=== PATIENT | female | born 1985 | race Caucasian/White ===

== ENCOUNTER 2017-07-26 08:46 | Inpatient (IN) | payer OTHER ==
[2017-07-26 10:24] VITALS: BMI 42.4
--- NOTE | 2017-07-26 12:58 | HP ---
CIWA Score - CIWA Score Nausea/Vomitin-No Nausea/No Vomiting Muscle Tremors: 4-Moderate,w/Arms Extend Anxiety: 3 Agitation: 4-Moderately Restless Paroxysmal Sweats: 3 Orientation: 0-Oriented Tacttile Disturbances: 0-None Auditory Disturbances: 0-None Visual Disturbances: 0-None Headache: 1-Very Mild CIWA-Ar Total Score: 15 Admission ROS BHS - HPI Chief Complaint: I am here to detox. Allergies/Adverse Reactions: Allergies Allergy/AdvReac Type Severity Reaction Status Date / Time Penicillins Allergy Severe Rash Verified 07/26/17 10:29 History of Present Illness: pt is a 31yr old female with a history of alcohol dependence seeking detox for treatment. Exam Limitations: No Limitations - Ebola screening Have you traveled outside of the country in the last 21 days: No Have you had contact with anyone from an Ebola affected area: No Have you been sick,other than usual withdrawal symptoms: No Do you have a fever: No - Review of Systems Constitutional: Chills, Diaphoresis, Loss of Appetite, Night Sweats, Changes in sleep EENT: reports: No Symptoms Reported Respiratory: reports: No Symptoms reported Cardiac: reports: Syncope GI: reports: Nausea, Poor Fluid Intake, Vomiting, Indigestion : reports: No Symptoms Reported Musculoskeletal: reports: Back Pain, Muscle Pain Integumentary: reports: Flushing, Pruritus (abdomen and chest area), Rash ( abdomen and chest), Sweating Neuro: reports: Headache, Seizure (last seizure 2013), Tingling, Tremors Endocrine: reports: Excessive Sweating, Flushing Hematology: reports: No Symptoms Reported Psychiatric: reports: Judgement Intact, Mood/Affect Appropiate, Orientated x3, Agitated, Anxious Other Systems: Reviewed and Negative Patient History - Patient Medical History Hx Anemia: No Hx Asthma: No Hx Chronic Obstructive Pulmonary Disease (COPD): No Hx Cancer: No Hx Cardiac Disorders: No Hx Congestive Heart Failure: No Hx Hypertension: No Hx Hypercholesterolemia: Yes Hx Pacemaker: No HX Cerebrovascular Accident: No Hx Seizures: Yes (etoh related in 2013) Hx Dementia: No Hx Diabetes: No Hx Gastrointestinal Disorders: No Hx Liver Disease: No Hx Genitourinary Disorders: No Hx Sexually Transmitted Disorders: No Hx Renal Disease (ESRD): No Hx Thyroid Disease: No Hx Human Immunodeficiency Virus (HIV): No (negative) Hx Hepatitis C: No (negative) Hx Depression: Yes Hx Suicide Attempt: Yes ( tried to cut wrist age 14. denies any S/H ideation today) Hx Bipolar Disorder: No Hx Schizophrenia: No - Patient Surgical History Past Surgical History: Yes Hx Section: Yes (2004) - PPD History Previous Implant?: Yes Documented Results: Negative w/o proof Implanted On Prior [facility] Admission?: No PPD to be Administered?: Yes - Reproductive History Last Menstrual Period: 07/12/17 Patient : No - Smoking Cessation Smoking history: Current every day smoker Have you smoked in the past 12 months: Yes Aproximately how many cigarettes per day: 20 Hx Chewing Tobacco Use: No Initiated information on smoking cessation: Yes 'Breaking Loose' booklet given: 07/26/17 - Substance & Tx. History Hx Alcohol Use: Yes Hx Substance Use: Yes Substance Use Type: Alcohol, Cocaine, Marijuana Hx Substance Use Treatment: Yes (last detox [facility] in [place] 11/2015 ) - Substances Abused Alcohol Route: Oral Frequency: Daily Amount used: 12PK BEER/ a fifth of vodka Age of first use: 11 Date of Last Use: 07/26/17 Cocaine Route: Inhalation Frequency: 1-3 times last 30 days Amount used: 1 GRAM Age of first use: 13 Date of Last Use: 07/24/17 Marijuana/Hashish Route: Smoking Frequency: Daily Amount used: 2 JOINTS Age of first use: 13 Date of Last Use: 07/25/17 Family Disease History - Family Disease History Family Disease History: Heart Disease: Mother, CA: Grandparent (breast CA), Brother (testicular CA) Admission Physical Exam S - Vital Signs Vital Signs: Vital Signs - 24 hr 07/26/17 10:22 Temperature 96.4 F L Pulse Rate 84 Respiratory 20 Rate Blood Pressure 151/89 - Physical General Appearance: Yes: Appropriately Dressed, Moderate Distress, Obese, Tremorous, Irritable, Sweating, Anxious HEENTM: Yes: Normal Voice Respiratory: Yes: Lungs Clear, Normal Breath Sounds, No Respiratory Distress Neck: Yes: No masses,lesions,Nodules Breast: Yes: Within Normal Limits Cardiology: Yes: Regular Rhythm, Regular Rate, S1, S2 Abdominal: Yes: Normal Bowel Sounds, Non Tender, Soft Genitourinary: Yes: Within Normal Limits Back: Yes: Normal Inspection Musculoskeletal: Yes: full range of Motion, Gait Steady Extremities: Yes: Normal Capillary Refill, Normal Inspection, Tremors Neurological: Yes: Fully Oriented, Alert, Normal Response Integumentary: Yes: Normal Color, Diaphoresis Lymphatic: Yes: Within Normal Limits - Diagnostic (1) Alcohol dependence with uncomplicated withdrawal Current Visit: Yes Status: Chronic (2) Rash/skin eruption Current Visit: Yes Status: Acute Comment: on metrol pk and docycline antibiotic (3) Hypercholesteremia Current Visit: Yes Status: Chronic Cleared for Admission [facility] - Detox or Rehab [facility] Level of Care: Medically Managed Detox Regimen/Protocol: Librium [facility] Breath Alcohol Content Breath Alcohol Content: 0.018 Urine Pregancy Test - Result Urine Test Results: Negative- NO Line Present Urine Drug Screen - Results Drug Screen Negative: No Urine Drug Screen Results: THC-Marijuana, AIMEE-Cocaine
[2017-07-26] MEDS ORDERED: MAGNESIUM HYDROX 2400MG/30ML ORAL SUSPENSION 30 ML CUP PO PRN (13:14)
[2017-07-26] MEDS ORDERED: MAGNESIUM CITRATE 300 ML BOTTLE PO PRN (13:14)
[2017-07-26] MEDS ORDERED: MENTHOL/PHENOL 1 EACH UD MM PRN (13:14)
[2017-07-26] MEDS ORDERED: LOPERAMIDE HCL 2 MG CAPSULE PO PRN (13:14)
[2017-07-26] MEDS ORDERED: chlordiazePOXIDE HCL 25 MG CAPSULE PO PRN (13:14)
[2017-07-26] MEDS ORDERED: MAG HYDROX/AL HYDROX/SIMETH 30 ML UNIT-DOSE CUP PO PRN (13:14)
[2017-07-26] MEDS ORDERED: P-EPHED 60MG/TRIPROLIDI 2.5MG TABLET PO PRN (13:14)
[2017-07-26] MEDS ORDERED: guaiFENesin/D-METHORPHAN HB 10 ML UNIT-DOSE CUPS PO PRN (13:14)
[2017-07-26] MEDS ORDERED: chlordiazePOXIDE HCL 25 MG CAPSULE PO ONE (14:00)
[2017-07-26] MEDS: chlordiazePOXIDE HCL 25 MG CAPSULE PO SCH ×2 (16:58→22:20)
[2017-07-26] MEDS: DOXYCYCLINE HYCLATE 100 MG TABLET PO SCH (17:01)
[2017-07-26] MEDS: hydrOXYzine PAMOATE 50 MG CAPSULE (FP) PO PRN (17:05)
[2017-07-26 17:24] LABS: MCH 27.8 pg (25.7-33.7); MCHC 32.1 g/dl (32.0-36.0); MEAN CELL VOLUME 86.6 fl (80-96); MEAN PLT VOLUME 10.2 fl (7.5-11.1); PLATELET COUNT 338 K/MM3 (134-434); RDW 15.5 % (11.6-15.6); WHITE BLOOD COUNT 16.1 K/mm3 (4.0-10.0)
[2017-07-26 17:31] LABS: URINE APPEARANCE SLCLOUDY; URINE BILIRUBIN NEGATIVE (NEGATIVE); URINE BLOOD NEGATIVE (NEGATIVE); URINE COLOR DKYELLOW; URINE GLUCOSE (UA) NEGATIVE (NEGATIVE); URINE KETONE TRACE (NEGATIVE); URINE LEUK ESTERASE NEGATIVE (NEGATIVE); URINE NITRITE NEGATIVE (NEGATIVE); URINE PROTEIN NEGATIVE (NEGATIVE); URINE UROBILINOGEN NEGATIVE mg/dL (0.2-1.0)
[2017-07-26 17:49] LABS: CALCIUM 9.5 mg/dL (8.5-10.1)
[2017-07-26 17:56] LABS: ALBUMIN 4.2 g/dl (3.4-5.0); ALK PHOS 83 U/L (45-117); ANION GAP 10 (8-16); BILIRUBIN,TOTAL 0.4 mg/dL (0.2-1.0); CO2 29 mmol/L (21-32); GLUCOSE,RANDOM 89 mg/dL (74-106); SGOT/AST 25 U/L (15-37); SGPT/ALT 37 U/L (12-78); TOT PROT 7.8 g/dl (6.4-8.2)
[2017-07-26] MEDS: THIAMINE HCL 100 MG TABLET (FP) PO SCH (22:20)
[2017-07-26] MEDS: diphenhydrAMINE HCL 50 MG CAPSULE PO PRN (22:20)
[2017-07-27] MEDS: chlordiazePOXIDE HCL 25 MG CAPSULE PO SCH ×4 (06:02→22:23)
[2017-07-27] MEDS ORDERED: methylPREDNISolone 4 MG TABLET PO SCH (10:00)
[2017-07-27] MEDS ORDERED: TRIMETHOBENZAMIDE HCL 200MG/2ML INJ IM ONE (10:15)
--- NOTE | 2017-07-27 10:24 | CONSULT ---
[facility] Psychiatric Consult - Data Date of interview: 07/27/17 Admission source: [facility] Identifying data: This is 31 years old female with psychiatric hospitalization history, intoxicated with: Opioids, Cocaine, Xanax and Nicotine Substance Abuse History: Smoking history: Current every day smoker. Have you smoked in the past 12 months: Yes. Aproximately how many cigarettes per day: 20. Hx Chewing Tobacco Use: No. Initiated information on smoking cessation: Yes. 'Breaking Loose' booklet given: 07/26/17. - Substance & Tx. History. Hx Alcohol Use: Yes. Hx Substance Use: Yes. Substance Use Type: Alcohol, Cocaine , Marijuana. Hx Substance Use Treatment: Yes (last detox [facility] in [place] 11/2015). - Substances Abused. Alcohol. Route: Oral. Frequency: Daily. Amount used: 12PK BEER/ a fifth of vodka. Age of first use: 11. Date of Last Use: 07/26/17. Cocaine. Route: Inhalation. Frequency: 1-3 times last 30 days. Amount used: 1 GRAM. Age of first use: 13. Date of Last Use: . Marijuana/Hashish. Route: Smoking. Frequency: Daily. Amount used : 2 JOINTS. Age of first use: 13. Date of Last Use: 07/25/17 Medical History: Hypercholesterolemia, Psychiatric History: Patient reports history of anxiety and depression history, most recent psychiatoirc admsision on 2015 at [facility], reports unclear suicidal history, no scars or stitches visible, reports last suicidal OG on 2015, no suicidal attempts since then, reports taking prior to admision: Gabapentin 800mg po tid. Topamax 50mg po bid. Zoloft 200mg poqd. Abilify 10mg poqd Physical/Sexual Abuse/Trauma History: Denies Additional Comment: Gabapentin 800mg po tid. Topamax 50mg po bid. Zoloft 200mg poqd. Abilify 10mg poqd Mental Status Exam - Mental Status Exam Alert and Oriented to: Person Cognitive Function: Fair Patient Appearance: Unkempt Mood: Anxious Affect: Constricted Patient Behavior: Cooperative Voice Loudness: Normal Thought Process: Goal Oriented Thought Disorder: Being Controlled Hallucinations: Denies Suicidal Ideation: Denies Homicidal Ideation: Denies Insight/Judgement: Fair Sleep: Difficulty falling asleep Appetite: Weight gain Muscle strength/Tone: Normal Gait/Station: Normal Additional Comments: Gabapentin 800mg po tid. Topamax 50mg po bid. Zoloft 200mg poqd. Abilify 10mg poqd Psychiatric Findings - Problem List ([place] 1, 2,3) (1) Alcohol dependence with uncomplicated withdrawal Current Visit: Yes Status: Chronic (2) Bipolar disorder Current Visit: Yes Status: Acute (3) Alcohol-induced anxiety disorder Current Visit: Yes Status: Acute (4) Bipolar I disorder, severe, current or most recent episode depressed, in full remission, with anxious distress Current Visit: Yes Status: Acute - Initial Treatment Plan Initial Treatment Plan: Gabapentin 800mg po tid. Topamax 50mg po bid. Zoloft 200mg poqd. Abilify 10mg poqd
[2017-07-27] MEDS: PRENATAL VITAMINS W/ FOLIC ACID TABLET (FP) PO SCH (10:49)
[2017-07-27] MEDS: SERTRALINE HCL 50 MG TABLET (FP) PO SCH (10:49)
[2017-07-27] MEDS: DOXYCYCLINE HYCLATE 100 MG TABLET PO SCH ×2 (10:49→17:24)
[2017-07-27] MEDS: methylPREDNISolone 4 MG TABLET PO SCH (10:49)
[2017-07-27] MEDS: TOPIRAMATE 25 MG TABLET (FP) PO SCH ×2 (10:49→22:24)
[2017-07-27] MEDS: ACETAMINOPHEN 325 MG TABLET (FP) PO PRN (10:51)
[2017-07-27] MEDS: NICOTINE 21 MG/24 HOURS TOPICAL PATCH TD SCH (10:52)
[2017-07-27] MEDS: ARIPiprazole 10 MG TABLET PO SCH (10:53)
--- NOTE | 2017-07-27 11:47 | PN ---
S CIWA - CIWA Score Nausea/Vomitin-Mild Nausea/No Vomiting Muscle Tremors: 4-Moderate,w/Arms Extend Anxiety: 4-Mod. Anxious/Guarded Agitation: 4-Moderately Restless Paroxysmal Sweats: 3 Orientation: 0-Oriented Tacttile Disturbances: 0-None Auditory Disturbances: 0-None Visual Disturbances: 0-None Headache: 0-None Present CIWA-Ar Total Score: 16 [facility] Progress Note (SOAP) Subjective: sweats nausea shakes interrupted sleep agitation Objective: 07/27/17 11:45 Vital Signs Temperature 98.1 F 07/27/17 10:21 Pulse Rate 118 H 07/27/17 10:21 Respiratory Rate 20 07/27/17 10:21 Blood Pressure 123/67 07/27/17 10:21 O2 Sat by Pulse Oximetry (%) Laboratory Tests 07/26/17 07/26/17 07/26/17 13:15 13:15 14:00 WBC 16.1 H RBC 4.72 Hgb 13.1 Hct 40.9 MCV 86.6 MCH 27.8 MCHC 32.1 RDW 15.5 Plt Count 338 MPV 10.2 Sodium 141 Potassium 4.0 Chloride 102 Carbon Dioxide 29 Anion Gap 10 BUN 7 Creatinine 1.0 Creat Clearance w eGFR > 60 Random Glucose 89 Calcium 9.5 Total Bilirubin 0.4 AST 25 ALT 37 Alkaline Phosphatase 83 Total Protein 7.8 Albumin 4.2 Urine Color Dkyellow Urine Appearance Slcloudy Urine pH 5.0 Ur Specific [place] >= 1.030 H Urine Protein Negative Urine Glucose (UA) Negative Urine Ketones Trace H Urine Blood Negative Urine Nitrite Negative Urine Bilirubin Negative Urine Urobilinogen Negative Ur Leukocyte Esterase Negative awake/alert ambulating no acute distress Assessment: 07/27/17 11:45 withdrawal sx Plan: continue detox tigan IM x one increase fluids
--- NOTE | 2017-07-27 12:44 | EKG ---
Test Reason : Blood Pressure : / mmHG Vent. Rate : 070 BPM Atrial Rate : 070 BPM P-R Int : 126 ms QRS Dur : 088 ms QT Int : 396 ms P-R-T Axes : -18 052 041 degrees QTc Int : 427 ms NORMAL SINUS RHYTHM NORMAL ECG NO PREVIOUS ECGS AVAILABLE Confirmed by NICO LYONS, YAN ([id number]) on 07/27/2017 12:43:28 PM Referred By: Antony Pandey Confirmed By:YAN WALSH MD
[2017-07-27] MEDS: GABAPENTIN 400 MG CAPSULE (FP) PO SCH ×2 (14:20→22:24)
[2017-07-27] MEDS ORDERED: chlordiazePOXIDE HCL 25 MG CAPSULE PO PRN (15:20)
[2017-07-27] MEDS ORDERED: chlordiazePOXIDE HCL 25 MG CAPSULE PO SCH (17:00)
[2017-07-27] MEDS: IBUPROFEN 400 MG TABLET (FP) PO PRN (21:19)
[2017-07-27] MEDS: NICOTINE POLACRILEX 4 MG GUM BC PRN (21:43)
[2017-07-27] MEDS: diphenhydrAMINE HCL 50 MG CAPSULE PO PRN (22:23)
[2017-07-27] MEDS: THIAMINE HCL 100 MG TABLET (FP) PO SCH (22:24)
[2017-07-28] MEDS: chlordiazePOXIDE HCL 25 MG CAPSULE PO SCH ×2 (05:36→10:55)
[2017-07-28] MEDS: GABAPENTIN 400 MG CAPSULE (FP) PO SCH ×3 (05:41→22:20)
[2017-07-28] MEDS: NICOTINE POLACRILEX 4 MG GUM BC PRN ×2 (08:32→12:30)
[2017-07-28] MEDS: PRENATAL VITAMINS W/ FOLIC ACID TABLET (FP) PO SCH (10:54)
[2017-07-28] MEDS: TOPIRAMATE 25 MG TABLET (FP) PO SCH ×2 (10:55→22:20)
[2017-07-28] MEDS: SERTRALINE HCL 50 MG TABLET (FP) PO SCH (10:55)
[2017-07-28] MEDS: methylPREDNISolone 4 MG TABLET PO SCH (10:55)
[2017-07-28] MEDS: ARIPiprazole 10 MG TABLET PO SCH (10:56)
[2017-07-28] MEDS: NICOTINE 21 MG/24 HOURS TOPICAL PATCH TD SCH (10:56)
[2017-07-28] MEDS: DOXYCYCLINE HYCLATE 100 MG TABLET PO SCH ×2 (10:56→17:04)
--- NOTE | 2017-07-28 11:09 | PN ---
[facility] CIWA - CIWA Score Nausea/Vomitin-No Nausea/No Vomiting Muscle Tremors: 3 Anxiety: 3 Agitation: 3 Paroxysmal Sweats: 3 Orientation: 0-Oriented Tacttile Disturbances: 0-None Auditory Disturbances: 0-None Visual Disturbances: 0-None Headache: 0-None Present CIWA-Ar Total Score: 12 [facility] Progress Note (SOAP) Subjective: agitation sweats irritable interrupted sleep Objective: 07/28/17 11:08 Vital Signs Temperature 96.8 F L 07/28/17 09:42 Pulse Rate 107 H 07/28/17 09:42 Respiratory Rate 20 07/28/17 09:42 Blood Pressure 132/83 07/28/17 09:42 O2 Sat by Pulse Oximetry (%) Laboratory Tests 07/26/17 07/26/17 07/26/17 13:15 13:15 13:15 WBC 16.1 H RBC 4.72 Hgb 13.1 Hct 40.9 MCV 86.6 MCH 27.8 MCHC 32.1 RDW 15.5 Plt Count 338 MPV 10.2 Sodium 141 Potassium 4.0 Chloride 102 Carbon Dioxide 29 Anion Gap 10 BUN 7 Creatinine 1.0 Creat Clearance w eGFR > 60 Random Glucose 89 Calcium 9.5 Total Bilirubin 0.4 AST 25 ALT 37 Alkaline Phosphatase 83 Total Protein 7.8 Albumin 4.2 Urine Color Urine Appearance Urine pH Ur Specific [place] Urine Protein Urine Glucose (UA) Urine Ketones Urine Blood Urine Nitrite Urine Bilirubin Urine Urobilinogen Ur Leukocyte Esterase RPR Titer Nonreactive 07/26/17 14:00 WBC RBC Hgb Hct MCV MCH MCHC RDW Plt Count MPV Sodium Potassium Chloride Carbon Dioxide Anion Gap BUN Creatinine Creat Clearance w eGFR Random Glucose Calcium Total Bilirubin AST ALT Alkaline Phosphatase Total Protein Albumin Urine Color Dkyellow Urine Appearance Slcloudy Urine pH 5.0 Ur Specific [place] >= 1.030 H Urine Protein Negative Urine Glucose (UA) Negative Urine Ketones Trace H Urine Blood Negative Urine Nitrite Negative Urine Bilirubin Negative Urine Urobilinogen Negative Ur Leukocyte Esterase Negative RPR Titer awake/alert ambulating no acute distress Assessment: 07/28/17 11:09 withdrawal sx Plan: continue detox increase fluids
[2017-07-28] MEDS: chlordiazePOXIDE 5 MG CAPSULE PO SCH ×2 (16:46→22:20)
[2017-07-28] MEDS: hydrOXYzine PAMOATE 50 MG CAPSULE (FP) PO PRN (16:46)
[2017-07-28] MEDS ORDERED: chlordiazePOXIDE 5 MG CAPSULE PO SCH (17:00)
[2017-07-28] MEDS: THIAMINE HCL 100 MG TABLET (FP) PO SCH (22:21)
[2017-07-28] MEDS: diphenhydrAMINE HCL 50 MG CAPSULE PO PRN (22:21)
[2017-07-29] MEDS: chlordiazePOXIDE 5 MG CAPSULE PO SCH ×2 (06:07→10:51)
[2017-07-29] MEDS: ACETAMINOPHEN 325 MG TABLET (FP) PO PRN ×2 (06:09→22:39)
[2017-07-29] MEDS: GABAPENTIN 400 MG CAPSULE (FP) PO SCH ×3 (06:09→22:37)
[2017-07-29] MEDS: ARIPiprazole 10 MG TABLET PO SCH (10:50)
[2017-07-29] MEDS: NICOTINE 21 MG/24 HOURS TOPICAL PATCH TD SCH (10:50)
[2017-07-29] MEDS: PRENATAL VITAMINS W/ FOLIC ACID TABLET (FP) PO SCH (10:50)
[2017-07-29] MEDS: SERTRALINE HCL 50 MG TABLET (FP) PO SCH (10:50)
[2017-07-29] MEDS: methylPREDNISolone 4 MG TABLET PO SCH (10:51)
[2017-07-29] MEDS: TOPIRAMATE 25 MG TABLET (FP) PO SCH ×2 (10:51→22:37)
[2017-07-29] MEDS: NICOTINE POLACRILEX 4 MG GUM BC PRN ×2 (10:52→14:24)
[2017-07-29] MEDS: DOXYCYCLINE HYCLATE 100 MG TABLET PO SCH ×2 (10:52→17:31)
--- NOTE | 2017-07-29 11:33 | PN ---
[facility] Progress Note (SOAP) Subjective: feeling better little sweats Objective: 07/29/17 11:32 Vital Signs Temperature 98.1 F 07/29/17 10:00 Pulse Rate 93 H 07/29/17 10:00 Respiratory Rate 18 07/29/17 10:00 Blood Pressure 125/88 07/29/17 10:00 O2 Sat by Pulse Oximetry (%) awake/alert ambulating no acute distress Assessment: 07/29/17 11:33 withdrawal sx Plan: continue detox increase fluids d/c in am
[2017-07-29] MEDS: hydrOXYzine PAMOATE 50 MG CAPSULE (FP) PO PRN (14:24)
[2017-07-29] MEDS ORDERED: chlordiazePOXIDE HCL 10 MG CAPSULE PO SCH (17:00)
[2017-07-29] MEDS: chlordiazePOXIDE HCL 10 MG CAPSULE PO SCH ×2 (17:31→22:36)
[2017-07-29] MEDS: IBUPROFEN 400 MG TABLET (FP) PO PRN (21:23)
[2017-07-29] MEDS: THIAMINE HCL 100 MG TABLET (FP) PO SCH (23:45)
[2017-07-30] MEDS: GABAPENTIN 400 MG CAPSULE (FP) PO SCH (06:01)
[2017-07-30] MEDS: chlordiazePOXIDE HCL 10 MG CAPSULE PO SCH (06:01)
[2017-07-30 06:33] VITALS: BP 112/65; PULSE 78; TEMP 97.8
[2017-07-30] MEDS: ARIPiprazole 10 MG TABLET PO SCH (09:44)
[2017-07-30] MEDS: PRENATAL VITAMINS W/ FOLIC ACID TABLET (FP) PO SCH (09:45)
[2017-07-30] MEDS: TOPIRAMATE 25 MG TABLET (FP) PO SCH (09:45)
[2017-07-30] MEDS: NICOTINE 21 MG/24 HOURS TOPICAL PATCH TD SCH (09:45)
[2017-07-30] MEDS: methylPREDNISolone 4 MG TABLET PO SCH (09:45)
[2017-07-30] MEDS: SERTRALINE HCL 50 MG TABLET (FP) PO SCH (09:46)
[2017-07-30] MEDS: DOXYCYCLINE HYCLATE 100 MG TABLET PO SCH (09:46)
--- NOTE | 2017-07-30 10:04 | DS ---
[facility] Detox Discharge Summary Admission Date: 07/26/17 Discharge Date: 07/30/17 - History Present History: Alcohol Dependence Pertinent Past History: anxiety, depression, insomnia, rash - Physical Exam Results Vital Signs: Vital Signs Temperature 97.8 F 07/30/17 06:00 Pulse Rate 78 07/30/17 06:00 Respiratory Rate 18 07/30/17 06:00 Blood Pressure 112/65 07/30/17 06:00 O2 Sat by Pulse Oximetry (%) Laboratory Tests 07/26/17 07/26/17 07/26/17 13:15 13:15 13:15 WBC 16.1 H RBC 4.72 Hgb 13.1 Hct 40.9 MCV 86.6 MCH 27.8 MCHC 32.1 RDW 15.5 Plt Count 338 MPV 10.2 Sodium 141 Potassium 4.0 Chloride 102 Carbon Dioxide 29 Anion Gap 10 BUN 7 Creatinine 1.0 Creat Clearance w eGFR > 60 Random Glucose 89 Calcium 9.5 Total Bilirubin 0.4 AST 25 ALT 37 Alkaline Phosphatase 83 Total Protein 7.8 Albumin 4.2 Urine Color Urine Appearance Urine pH Ur Specific [place] Urine Protein Urine Glucose (UA) Urine Ketones Urine Blood Urine Nitrite Urine Bilirubin Urine Urobilinogen Ur Leukocyte Esterase RPR Titer Nonreactive 07/26/17 14:00 WBC RBC Hgb Hct MCV MCH MCHC RDW Plt Count MPV Sodium Potassium Chloride Carbon Dioxide Anion Gap BUN Creatinine Creat Clearance w eGFR Random Glucose Calcium Total Bilirubin AST ALT Alkaline Phosphatase Total Protein Albumin Urine Color Dkyellow Urine Appearance Slcloudy Urine pH 5.0 Ur Specific [place] >= 1.030 H Urine Protein Negative Urine Glucose (UA) Negative Urine Ketones Trace H Urine Blood Negative Urine Nitrite Negative Urine Bilirubin Negative Urine Urobilinogen Negative Ur Leukocyte Esterase Negative RPR Titer Pertinent Admission Physical Exam Findings: withdrawal sx - Treatment Hospital Course: Detox Protocol Followed, Detoxed Safely, Responded well, Discharged Condition Good, Rehab Referral Accepted Patient has Accepted a Rehab Referral to: Yes - Medication Discharge Medications: Ambulatory Orders Aripiprazole [Abilify -] 10 mg PO DAILY 07/26/17 Doxycycline Hyclate [Vibramycin -] 100 mg PO BID 07/26/17 Gabapentin 800 mg PO TID 07/26/17 Pravastatin Sodium [Pravachol -] 20 mg PO HS 07/26/17 Prednisone [Deltasone -] 40 mg PO DAILY 07/26/17 Sertraline HCl [Zoloft -] 200 mg PO DAILY 07/26/17 Topiramate [Topamax -] 50 mg PO BID 07/26/17 Aripiprazole [Abilify -] 10 mg PO DAILY #30 tablet 07/27/17 Gabapentin [Neurontin -] 800 mg PO TID #90 cap 07/27/17 Sertraline HCl [Zoloft -] 200 mg PO DAILY #30 tablet 07/27/17 Topiramate [Topamax -] 50 mg PO BID #60 tab 07/27/17 - Diagnosis (1) Alcohol-induced anxiety disorder Current Visit: Yes Status: Acute (2) Bipolar I disorder, severe, current or most recent episode depressed, in full remission, with anxious distress Current Visit: Yes Status: Chronic (3) Rash/skin eruption Current Visit: Yes Status: Acute (4) Alcohol dependence with uncomplicated withdrawal Current Visit: Yes Status: Chronic (5) Hypercholesteremia Current Visit: Yes Status: Chronic - AMA Did Patient Leave Against Medical Advice: No
== END 2017-07-30 10:45 | disposition home or self-care (01) | DRG 775 ==
LOC: YASAS 08:46 → Y6N 12:05
PROVIDERS: ADMIT Internal Medicine Addiction Medicine; ATTEND Internal Medicine Addiction Medicine
PROC: HZ2ZZZZ Detoxification Services for Substance Abuse Treatment (ICD-10-PCS; principal; 2017-07-26)
DX: F10.230 Alcohol dependence with withdrawal, uncomplicated (principal); F10.280 Alcohol dependence with alcohol-induced anxiety disorder; F12.20 Cannabis dependence, uncomplicated; F17.210 Nicotine dependence, cigarettes, uncomplicated; F31.76 Bipolar disorder, in full remission, most recent episode depressed; E78.00 Pure hypercholesterolemia, unspecified; R21 Rash and other nonspecific skin eruption; E66.9 Obesity, unspecified; Z68.41 Body mass index [BMI] 40.0-44.9, adult; Z88.0 Allergy status to penicillin; Z86.69 Personal history of other diseases of the nervous system and sense organs; Z91.5 Personal history of self-harm
CPT/HCPCS: 36415; 80053; 81003; 85027; 86593; 93005; 93010